=== PATIENT | male | born 2000 | race Caucasian/White ===

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

== ENCOUNTER 2021-09-12 08:34 | Day surgery (SDC) | payer BC ==
--- NOTE | 2021-09-12 09:22 | PCM.PREANE ---
Preanesthetic Assessment - Anesthesia/Transfusion/Family Hx Anesthesia History: Prior Anesthesia Without Reaction Family History of Anesthesia Reaction: No Transfusion History: No Prior Transfusion(s) - Review of Systems General: No Symptoms Pulmonary: No Symptoms Cardiovascular: No Symptoms, Other (epistaxis history and anemia Iron def and vasovagal syncope by history) Gastrointestinal: No Symptoms Neurological: No Symptoms Other: Reports: None - Physical Assessment Height: 6 ft Weight: 222 lb Mental Status: Alert & Oriented x3 Dentition: Reports: Normal Dentition ROM/Head Extension: Full Lungs: Clear to Auscultation, Normal Respiratory Effort Cardiovascular: Regular Rate, Regular Rhythm - Allergies Allergies/Adverse Reactions: Allergies Allergy/AdvReac Type Severity Reaction Status Date / Time No Known Allergies Allergy Verified 09/10/21 14:08 PreAnesthesia Questionnaire - Past Health History Medical/Surgical History: Denies Medical/Surgical History Cardiovascular History: Reports: Other (See Below) Other Cardiovascular History: History of vasovagel syndrome, he passes out at times if under stress. Has not happened in over 3 years Hematologic History: Reports: Anemia - Past Surgical History Head Surgeries/Procedures: Reports: None - SUBSTANCE USE Tobacco Use Status *Q: Never Tobacco User Recreational Drug Use History: No - HOME MEDS Home Medications: Home Meds Ferrous Sulfate [Iron] 65 mg PO DAILY 09/10/21 [History] - CURRENT (IN HOUSE) MEDS Current Meds: Current Medications Lactated Ringer's (Ringers, Lactated) 1,000 mls @ 125 mls/hr IV ASDIRECTED [facility]
[2021-09-12] MEDS ORDERED: Lidocaine 2% 5 ML SDV ONE (09:26)
[2021-09-12] MEDS ORDERED: fentaNYL 100 MCG/2 ML SDV ONE (09:26)
[2021-09-12] MEDS ORDERED: Midazolam 1 MG/ML 2 ML SDV ONE (09:28)
[2021-09-12] MEDS ORDERED: Propofol 200 MG/20 ML SDV ONE (09:29)
[2021-09-12] MEDS ORDERED: Lactated Ringers 1,000 ML IV SCH (09:30)
[2021-09-12] MEDS ORDERED: Glycopyrrolate 0.2 MG/ML SDV ONE (09:33)
--- NOTE | 2021-09-12 10:23 | PCM.POSTAN ---
POST ANESTHESIA ASSESSMENT - MENTAL STATUS Mental Status: Alert, Oriented - VITAL SIGNS Vital Signs: Last Vital Signs Temp 36.4 C 09/12/21 09:36 Pulse 80 09/12/21 09:36 Resp 16 09/12/21 09:36 BP 133/67 09/12/21 09:36 Pulse Ox 100 09/12/21 09:36 - RESPIRATORY Respiratory Status: Respiratory Rate WNL, Airway Patent, O2 Saturation Stable - CARDIOVASCULAR CV Status: Pulse Rate WNL, Blood Pressure Stable - GASTROINTESTINAL GI Status: No Symptoms - POST OP HYDRATION Hydration Status: Adequate & Stable
--- NOTE | 2021-09-12 10:24 | PCM48HPAN ---
Post Anesthesia Note - EVALUATION WITHIN 48HRS OF ANESTHETIC Vital Signs in Normal Range: Yes Patient Participated in Evaluation: Yes Respiratory Function Stable: Yes Airway Patent: Yes Cardiovascular Function Stable: Yes Hydration Status Stable: Yes Pain Control Satisfactory: Yes Nausea and Vomiting Control Satisfactory: Yes Mental Status Recovered: Yes Vital Signs: Last Vital Signs Temp 36.4 C 09/12/21 09:36 Pulse 80 09/12/21 09:36 Resp 16 09/12/21 09:36 BP 133/67 09/12/21 09:36 Pulse Ox 100 09/12/21 09:36
--- NOTE | 2021-09-12 10:25 | PCM.OPNOTE ---
- General Post-Op/Procedure Note Date of Surgery/Procedure: 09/12/21 Operative Procedure(s): EGD with biopsies Findings: Normal EGD dictation number [id number] Pre Op Diagnosis: Coffe ground emesis Post-Op Diagnosis: Normal EGD Anesthesia Technique: [facility] Primary Surgeon: Dilip Cruz Pathology: EGD biopsies Complications: None Condition: Good
--- NOTE | 2021-09-12 14:59 | OR ---
SURGEON: REDDY MACIAS MD DATE OF PROCEDURE: 09/12/2021 PREOPERATIVE DIAGNOSES: 1. Coffee-grounds emesis. 2. Anemia. POSTOPERATIVE DIAGNOSIS: Normal esophagogastroduodenoscopy. PROCEDURE PERFORMED: Esophagogastroduodenoscopy with biopsy. PRIMARY SURGEON: Reddy Macias MD ANESTHESIA: With anesthesiologist. EXTENT OF EGD: To the duodenum. COMPLICATIONS: None. REASON FOR PROCEDURE: Patient is a pleasant 21-year-old gentleman who couple weeks ago had multiple bouts of bloody noses that lasted about 45 minutes each. After one of his nosebleed, he did have an emesis which had coffee-grounds emesis in it. He also had one bowel movement that was darker. He denies any symptoms of heartburn or indigestion. He denies any swallowing issues. He also has issues with passing out, although this has been diagnosed as vasovagal symptoms in 2013. He has seen ENT already. PROCEDURE IN DETAIL: Physical examination was performed. Major risks and benefits associated with procedure were explained to the patient in detail. Patient verbalized understanding and agreement of the same. Patient was then connected to appropriate monitoring devices and IV started. EKG, pulse, pulse oximetry, blood pressure, and capnography were monitored throughout the entire procedure. Continuous oxygen and sedation were provided by the anesthesiologist. Sedation was began, and after adequate sedation was achieved, the upper endoscope was advanced under direct visualization without difficulty to the upper GI tract. The anatomy and mucosa of the esophagus, GE junction, stomach, pylorus, and duodenum were all inspected. Duodenum appeared normal. Scope was brought back to the stomach. Both retrograde and antegrade views of stomach were done. The patient had a slightly more patent open to the pylorus, but really no gastritis noted. I did do biopsies of the antrum to check for H pylori. The scope was brought to the GE junction. GE junction was approximately 40 cm from his incisors. Good GE junction with a good Z-line. Scope was brought back to the stomach. The stomach was desufflated. Scope was brought up through the esophagus. Esophagus appeared normal. Scope was completely removed, and procedure was terminated. ENDOSCOPIC DIAGNOSIS: Normal esophagogastroduodenoscopy. RECOMMENDATION: Patient is to follow up in clinic. However, most likely source of his coffee- grounds emesis was likely postnasal drip from his multiple nosebleeds. I did go over with him if continues to have dark stools bloody nose and continues to have anemia, he might potentially need a colonoscopy, but the most likely source is his multiple nosebleeds he has had. RENAN / SHA /[id number]
== END 2021-09-12 10:50 | disposition home or self-care (01) ==
LOC: MW.SDS 08:34
PROVIDERS: ATTEND Surgery
DX: K31.89 Other diseases of stomach and duodenum (principal); D50.9 Iron deficiency anemia, unspecified; Z79.899 Other long term (current) drug therapy
CPT/HCPCS: 43239; J2250; J2704; J3010; J3490; J7120; 00731